=== PATIENT | male | born 1950 | race African-American/Black ===

== ENCOUNTER 2018-01-06 16:46 | Emergency (ER) | payer OTHER ==
[~2018-01-06] VITALS: Ht 170.2 cm; Wt 122.5 kg
--- NOTE | ~2018-01-06 | EKG ---
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 : 1950 Requested By: Matt Casas Order Number: [id number] MD: Ross Valdivia Measurements Intervals [place] Rate: 88 P: 35 [place]: 173 QRS: -71 QRSD: 106 T: 20 QT: 367 QTc: 444 Interpretive Statements Sinus rhythm Left anterior fascicular block Abnormal R-wave progression, late transition Compared to ECG 10/08/2014 17:33:21 No significant changes Electronically Signed On 01-06-2018 19:31:06 CDT by Ross Valdivia [email or web address] <ELECTRONICALLY SIGNED> By: Ross Valdivia MD, [facility] 01/06/18 193 51 51 Ross Valdivia MD, [facility] /EPI
[~2018-01-06 16:46] MED LIST: ASPIRIN325 PO; BENICAR40 MG PO; CARTIA XT240 M1 PO; CYMBALTA60 MG PO; INVEGA3 MG PO; MELOXICAM15 MG PO; NEXIUM40 MG PO; NORFLEX100 MG PO; SENNA-S TABLET1 EACH; TRAMADOL 50 MG50 MG PO; TRAZODONE HCL100 MG PO; ULTRAM 50MG TAB50 MG PO
[2018-01-06 16:56] LABS: ABSOLUTE NEUTROPHILS 4.3 thou/uL (1.4-8.2); BASOPHILS 1.1 % (0.0-2.0); EOSINOPHILS 2.2 % (0.0-3.0); HEMATOCRIT 39.8 % (42.0-52.0); HEMOGLOBIN 13.2 gm/dL (14.0-18.0); LYMPHOCYTES 26.1 % (24.0-44.0); MCH 26.9 pg (26.0-34.0); MCHC 33.1 g/dL (28.0-37.0); MCV 81.2 fL (80.0-100.0); MONOCYTES 10.3 % (1.0-8.0); PLATELET COUNT 155 thou/uL (150-400); POLYS 60.3 % (36.0-66.0); RDW 17.6 % (10.5-14.5); WBC 7.1 thou/uL (4.0-11.0)
[2018-01-06 17:04] LABS: ANION GAP 4 mmol/L (7-16); BUN 15 mg/dL (7-18); CALCIUM 8.3 mg/dL (8.5-10.1); CHLORIDE 101 mmol/L (98-107); CO2 30 mmol/L (21-32); CREATININE 1.3 mg/dL (0.7-1.3); GLUCOSE 95 mg/dL (74-106); POTASSIUM 5.1 mmol/L (3.5-5.1); SODIUM 135 mmol/L (136-145)
[2018-01-06 17:12] LABS: TROPONIN-I < 0.04 ng/mL (<0.06)
== END 2018-01-06 18:20 | disposition home or self-care (01) ==
LOC: ER 16:46
PROVIDERS: Emergency Medicine
DX: R07.89 Other chest pain (principal); I10 Essential (primary) hypertension; Z88.8 Allergy status to other drugs, medicaments and biological substances